=== PATIENT | female | born 1960 | race Caucasian/White ===

== ENCOUNTER 2022-05-08 09:05 | Outpatient (CLI) | payer OTHER, SELFPAY ==
--- NOTE | 2022-05-08 09:15 | CRLHL7_ITS ---
For Patients: As a result of the Century Cures Act, medical imaging exams and procedure reports are released immediately into your electronic medical record. You may view this report before your referring provider. If you have questions, please contact your health care provider. BILATERAL SCREENING MAMMOGRAM WITH COMPUTER-AIDED DETECTION AND TOMOSYNTHESIS TECHNIQUE: CC and MLO views were obtained. These mammographic images have been obtained using full-field digital technique. These mammographic images were interpreted with the benefit of computer-aided detection. Breast Tomosynthesis was used in this interpretation. COMPARISON FILM: 03/21/21, 03/01/20, 02/05/19. FINDINGS: The breasts are heterogeneously dense, which may obscure small masses. IMPRESSION: There is no radiographic evidence for malignancy. ASSESSMENT: BI-RADS Category 2: Benign RECOMMENDATION: Routine screening mammogram in 1 year. A lay language report of this examination will be provided to the patient. Meme Herrera M.D. Diagnostic/Breast Radiologist [email or web address] STEVEP/cosme PT/Dictated by: Meme Herrera MD @ 05/08/2022 10:37:00 AM (Electronically Signed)
== END 2022-05-08 09:06 | disposition home or self-care (01) ==
LOC: MAMMO 09:06
PROVIDERS: PCP Family Medicine; Visit Provider Family Medicine
DX: Z12.31 Encounter for screening mammogram for malignant neoplasm of breast (principal); R92.2 Inconclusive mammogram
CPT/HCPCS: 77063; 77067

== ENCOUNTER 2023-02-20 07:57 | Outpatient (CLI) | payer OTHER, SELFPAY | END 2023-02-20 07:58 | disposition home or self-care (01) | LOC: NFLDREF 14:29 | PROVIDERS: PCP Family Medicine; Referring Provider Family Medicine; Visit Provider Family Medicine | DX: E03.9 Hypothyroidism, unspecified (principal); E78.5 Hyperlipidemia, unspecified; R17 Unspecified jaundice; F41.9 Anxiety disorder, unspecified; F32.A Depression, unspecified | CPT/HCPCS: 80061; 80076; 84443 ==

== ENCOUNTER 2023-06-11 15:08 | Outpatient (CLI) | payer OTHER, SELFPAY ==
--- NOTE | 2023-06-11 15:20 | CRLHL7_ITS ---
For Patients: As a result of the Century Cures Act, medical imaging exams and procedure reports are released immediately into your electronic medical record. You may view this report before your referring provider. If you have questions, please contact your health care provider. BILATERAL SCREENING MAMMOGRAM WITH COMPUTER-AIDED DETECTION AND TOMOSYNTHESIS TECHNIQUE: CC and MLO views were obtained. These mammographic images have been obtained using full-field digital technique. These mammographic images were interpreted with the benefit of computer-aided detection. Breast Tomosynthesis was used in this interpretation. COMPARISON FILM: 05/08/22, 03/21/21, 03/01/20. FINDINGS: The breasts are heterogeneously dense, which may obscure small masses IMPRESSION: There is no radiographic evidence for malignancy. ASSESSMENT: BI-RADS Category 2: Benign RECOMMENDATION: Routine screening mammogram in 1 year. A lay language report of this examination will be provided to the patient. Gutsabo Jiménez M.D. Diagnostic Radiologist [email or web address] LYNNE/Dictated by: Gustabo Jiménez MD @ 06/12/2023 11:23:00 AM (Electronically Signed)
== END 2023-06-11 15:09 | disposition home or self-care (01) ==
LOC: MAMMO 15:09
PROVIDERS: PCP Family Medicine; Visit Provider Family Medicine
DX: Z12.31 Encounter for screening mammogram for malignant neoplasm of breast (principal); R92.2 Inconclusive mammogram
CPT/HCPCS: 77063; 77067

== ENCOUNTER 2023-09-14 12:45 | Outpatient (CLI) | payer OTHER, SELFPAY | END 2023-09-14 12:46 | disposition home or self-care (01) | LOC: NFLDREF 09-19 11:46 | PROVIDERS: PCP Family Medicine; Referring Provider Family Medicine; Visit Provider Registered Nurse | DX: N30.00 Acute cystitis without hematuria (principal); B96.20 Unspecified Escherichia coli [E. coli] as the cause of diseases classified elsewhere | CPT/HCPCS: 87086; 87186 ==

== ENCOUNTER 2023-11-28 07:34 | Outpatient (CLI) | payer OTHER, SELFPAY ==
--- OUTSIDE RECORDS SUMMARY | 2023-11-29 10:19 | XMS_ITS | Clinical Summary ---
[facility] Organization [facility] Address [address], [place] [address] Care Team Providers Care Bird Raiser Name Role Phone Cassie Steele MD Primary Care Provider + Source Comments You are receiving this document as you are listed as the primary care provider,follow-up provider, or the patient has been referred to you for consultation.This is in compliance with the Medicare and[facility] Hospital[facility] EHR Incentive Program,which states Providers who transition their patient to another setting of careor provider of care or refers their patient to another provider of care shouldprovide summary care record for each transition of care or referral. [facility] Allergies Active Allergy Reactions Criticality Noted Date Comments Penicillins 10/16/2003 PN: LW Reaction: rash Medications Medication Sig Dispensed Refills Start Date End Date Status Bimatoprost 0.03 % solutionIndications: Acquired hypothyroidism (HRC) Place into both eyes nightly. Place one drop on applicator and apply evenly along the upper eyelid at base of eyelashes 3 mL 11 12/13/2015 Active liothyronine (CYTOMEL) 5 MCG tablet Take 1 Tab by mouth two times a day. 180 Tab 1 10/17/2017 Active SYNTHROID 88 MCG tablet 1 tab 6 days per week and 1/2 tab 7th day 90 Tab 1 10/17/2017 Active gatifloxacin (AKA ZYMAXID) 0.5 % eye drop solution 1 drop. LW Comment:FOR OPERATIVE EYE LW Addl Instr:Use in operative eye as directed.Ocuflox may be substituted for insurance purposes.If purchased at a [facility] pharmacy please dispense post-op kit. 5 1 10/29/2005 6 Discontinue d(Therapy completed) prednisoLONE acetate (AKA PRED FORTE) 1 % eye drop suspension 1 drop. LW Addl Instr:Use in operative eye as directed. If purchased at a [facility] pharmacy please dispense post-op kit 10 1 11/01/2005 6 Discontinue d(Therapy completed) Active Problems Problem Noted Date Diagnosed Date H/O adenomatous polyp of colon 04/18/2013 Overview: saloni leyva'alicia 2016 Premenstrual tension syndrome 11/01/2009 Overview: Premenstrual Syndrome Other vitreous opacities, unspecified eye 2007 Overview: LW Modifier: s'p vitrectomy, detached retina ; Floaters Vitreous Diffuse cystic mastopathy 09/20/2007 Overview: Fibrocystic Breast Hypothyroidism 12/06/2002 Overview: Hypothyroidism Acquired Immunizations Name Administration Dates Next Due Flu Vac Preserv Free (3+yrs) 04/08/2012, 04/14/2011,04/13/2009,2007,04/19/2007,05/03/2006,05/08/2005 H1n1 Miv Sanofi 3+ Yr (Injected) 07/24/2009 HepA Adult (19+ yrs) 05/08/2008,09/20/2007 HepB Adult (Engerix-B, 20+ y rs, 3 dose series) 05/08/2008,11/01/2007,09/20/2007 Influenza IIV4 (Quadrivalent ) 0.5mL (06741) 04/04/2017,03/22/2016,05/19/2015,2012 Influenza, Unspecified Formulation 05/19,05/15/2002,04/09/2001,1998,04/19/1998,05/16/1997 Rabies 11/01/2007,10/18/2007,10/11/2007 Rho(D) - IG, IM 08/03/1994 TDAP (ADACEL) 11/09/2010 Td 05/15/2002 Family History Medical History Relation Name Comments Heart Disease Father High Blood Pressure Father Cataract Mother Macular Degeneration Mother Retinal Detachment Mother Cancer Negative Family History Cancer, Breast Negative Family History Cancer, Ovary Negative Family History Diabetes Negative Family History Stroke Negative Family History Relation Name Status Comments Father Mother Social History Tobacco Use Types Packs/Day Years Used Date Smoking Tobacco: Never Smokeless Tobacco: Never Alcohol Use Standard Drinks/Week Comments Yes 3 (1 standard drink = 0.6 oz pure alcohol) Alcoholic Drinks/day: Amount:1-2 drinks; 3-4 times per week Sex and Gender Information Value Date Recorded Sex Assigned at Not on file Gender Identity Not on file Sexual Orientation Not on file Last Filed Vital Signs Vital Sign Reading Time Taken Comments Blood Pressure 112/82 04/04/2017 11:47 AM CDT Pulse 64 04/04/2017 11:47 AM CDT Temperature 37.2 ??C (99 ??F) 05/19/2015 7:51 AM IN FLIGHT TECHNICIAN Respiratory Rate 16 07/22/2015 12:45 PM IN FLIGHT TECHNICIAN Oxygen Saturation 100% 07/22/2015 12:45 PM IN FLIGHT TECHNICIAN Inhaled Oxygen Concentration - - Weight 66.7 kg (147 lb) 04/04/2017 11:47 AM CDT Height 162.6 cm (5' 4) 04/04/2017 11:47 AM CDT Body Mass Index 25.23 04/04/2017 11:47 AM CDT Plan of Treatment Health Maintenance Due Date Last Done Comments HIV Screening (Preventive Services) 1975 Adult Preventive Visit 1977 Zoster/Shingles (1 of 2) 2009 Mammogram 12/25/2017 12/25/2016, 08/03, 08/24/2014, Additional history exists Cervical Cancer Screening 05/19/20182014, 11/09/2010, 11/01/2009, Additional history exists Colonoscopy 07/22/2020 07/22/2015, 01/30 (Completed), 12/02/2009 DTaP/Tdap/Td (2 - Tdap) 11/09/2020 11/09/2010, 05/15 Cholesterol 03/22/2021 03/22/2016, 01/2016, 05/19/2015, Additional history exists COVID-19 Vaccine ( season) 2023 Influenza (Season Ended) 2024 017, 03/22/2016, 05/19/2015, Additional history exists HepA Aged Out 05/08/2008, 09/20/2007 No lo nger eligible based on patient's age to complete this topic HepB Completed 05/08/2008, 08/2007, 09/20/2007 Hep C Screening (Preventive Services) Completed 03/22/2016 Hib Aged Out No longer eligi ble based on patient's age to complete this topic IPV (Polio) Aged Out No longer eligi ble based on patient's age to complete this topic MCV4 Aged Out No longer eligi ble based on patient's age to complete this topic Pneumococcal Aged Out No longer eligi ble based on patient's age to complete this topic Procedures Procedure Name Priority Date/Time Associated Diagnosis Comments MM MAMMOGRAM SCREENING BILAT W CAD Routine 12/25/2016 3:41 PM CDT Visit for screening HEPATITIS C ANTIBODY, WITH REFLEX Routine 03/22/2016 7:47 AM CDT Need for hepatitis C screening test LIPID PANEL & DIRECT LDL (IF NEEDED) Routine 03/22/2016 7:47 AM CDT Elevated cholesterol (HRC) ENDOSCOPY, COLON, SCREENING/DIAGNOSTI C Routine 07/22/2015 11:04 AM IN FLIGHT TECHNICIAN Anemia, unspecified anemia type ANATOMICAL PATH LIQUID BASED Routine 05/19/2015 8:38 AM IN FLIGHT TECHNICIAN from Last 3 Months or Most Recently Relevant to Health Maintenance Results * MM Mammogram Screening Bilat W CAD (12/25/2016 3:41 PM CDT) Anatomical Region Laterality Modality Breast Bilateral Mammography Impressions 12/25/2016 4:02 PM CDT : ACR BI-RADS Category 1: Negative RECOMMENDATION: Follow Up Imaging in 12 months - Bilateral The results and recommendations of this examination will be communicated to the patient. Narrative 12/25/2016 4:02 PM CDT MM MAMMOGRAM SCREENING BILAT W CAD performed on 12/25/16 Compared to: 08/26/2015 MM Mammogram Screening Bilat W CAD, 08/24/2014 MM Mammogram Screening Bilat W CAD, and 04/18/2013 MM Mammogram Screening Bilat W CAD FINDINGS: Bilateral screening mammogram was performed with the assistance of Computer-Aided Detection. The breasts are heterogeneously dense, which may obscure small masses. There is no radiographic evidence of malignancy. ?? Cassie Steele MD RAD CORNELIUS * (ABNORMAL) Lipid Panel and Direct LDL(If Needed) (03/22/2016 7:47 AM CDT) Cholesterol 235(H) 0 - 199 mg/dL PN SOFT Triglycerides 74 4 - 149 mg/dL PN SOFT HDL Cholesterol 79 >39 mg/dL PN SOFT Cholesterol/HDL Ratio Screen 3.0 PN SOFT LDL Calculated 141(H) 19 - 130 mg/dL PN SOFT Hours Fasting 12.0 PN SOFT 03/22/2016 7:47 AM CDT 03/22/2016 1:56 PM CDT Narrative PN SOFT - 03/22/2016 2:47 PM CDT Performed at [facility] [place], [address] [place] [id number] CLIA# [id number] Cassie Steele MD LAB_1 PN SOFT [address] [place] [address] * Hepatitis C Virus Gena with Reflex (03/22/2016 7:47 AM CDT) Hepatitis C Antibody Nonreactive Nonreactive PN SOFT 03/22/2016 7:47 AM CDT 03/22/2016 12:57 PM CDT Narrative PN SOFT - 03/22/2016 1:42 PM CDT Performed at [facility], [address] [place] [address] CLIA number [id number] Cassie Steele MD LAB_1 PN SOFT [address] [place] [address] * Endoscopy, colon, diagnostic (07/22/2015 11:04 AM IN FLIGHT TECHNICIAN) 07/22/2015 11:0 4 AM IN FLIGHT TECHNICIAN Narrative PN PROVATION - 07/22/2015 11:04 AM IN FLIGHT TECHNICIAN Patient Name: Cmailla Hendricks Procedure Date: 07/22/2015 11:04 AM Date of : 1960 Admit Type: Outpatient Age: 55 Gender: Female Note Status: Finalized Attending MD: Fan Robison MD Procedure: ? Colonoscopy Indications: ? Last colonoscopy: January 2011 Providers: ? Fan Robison MD, Bonita Ireland MD: ?Cassie Steele MD Medicines: ? Midazolam 2 mg IV, Fentanyl 100 ? micrograms IV Complications: ? No immediate complications. Procedure: ? After I obtained informed consent, ? the scope was passed under direct ? vision. Throughout the procedure, the ? patient's blood pressure, pulse, and ? oxygen saturations were monitored ? continuously. The [id number] was ? introduced through the anus and ? advanced to the terminal ileum, with ? identification of the appendiceal ? orifice and IC valve. The colonoscopy ? was performed without difficulty. The ? patient tolerated the procedure well. ? The quality of the bowel preparation ? was excellent. Findings: ? The digital rectal exam showed no masses. ? The terminal ileum appeared normal. ? A 3 mm polyp was found in the distal ascending colon. ? The polyp was sessile. The polyp was removed with a ? cold biopsy forceps. Resection and retrieval were ? complete. ? A 5 mm polyp was found in the rectum. The polyp was ? sessile. The polyp was removed with a cold biopsy ? forceps. Resection and retrieval were complete. Impression: ?- The examined portion of the ileum ? was normal. ? - One 3 mm polyp in the distal ? ascending colon. Resected and ? retrieved. ? - One 5 mm polyp in the rectum. ? Resected and retrieved. Recommendation: ?- Await pathology results. ? - Repeat colonoscopy in 5 years for ? surveillance. Procedure Code(s): ?? --- Professional --- ? 85067, Colonoscopy, flexible; with ? biopsy, single or multiple Diagnosis Code(s): ?? --- Professional --- ? D12.2, Benign neoplasm of ascending ? colon ? K62.1, Rectal polyp CPT copyright 2014 [employer]. All rights reserved. The codes documented in this report are preliminary and upon domestic technician review may be revised to meet current compliance requirements. Fan Robison MD 07/22/2015 12:17 PM This document has been electronically signed. Number of Addenda: 0 Note Initiated On: 07/22/2015 11:04 AM ? Endoscopy Report Cassie Steele MD PN GI PROCEDURE ORDERABLES PN PROVATION * Pap Smear (05/19/2015 8:38 AM IN FLIGHT TECHNICIAN) 05/19/2015 8:38 AM IN FLIGHT TECHNICIAN Narrative HP CONVERSION - 05/26/2015 1:23 PM IN FLIGHT TECHNICIAN FINAL GYNECOLOGICAL CYTOLOGY REPORT Pathology #: [id number] ?Date Obtained: 05/19/2015 ? Date Received: 05/20/2015 INTERPRETATION/RESULTS: Negative for Intraepithelial Lesion or Malignancy. SPECIMEN ADEQUACY: Satisfactory for Evaluation. ??No endocervical cells/transformation zone component present; patient is postmenopausal. Verified on 05/26/2015 ??by LUCIUS MACKEY MD (electronic signature) CLINICAL NOTES: ?Abnormal bleeding: No, LMP: 11/01/2013, Menstrual status: Post ?Menopausal, Current form of therapy: None apply LIQUID BASED PAP SMEAR SPECIMEN TYPE: ?ROUTINE CERVICAL PAP TEST PLEASE NOTE: The pap smear is a screening test designed to aid in the detection of cervical cancer and its precursor lesions. It is not a diagnostic procedure and should not be used as the sole means of detecting cervical cancer. Both false-positive and false-negative reports may occur. ? End of Report Performed at [facility], [facility] [place] [address] Transcriptions 08/10/2016 12:13 AM CSTNotes Recorded by Sharri Allen RN on 06/14/2015 at 9:46 Radha Sampson,I am writing to let you know that your PAP and HPV result is negative. This means that your test result was normal. No cancer or precancerous cells were seen.Based on current cervical cancer screening recommendations, your next PAP and HPV should be in 3 years. Continue to schedule your annual preventive exams for your overall health.If you have questions about cervical cancer screening or your test results, callCervical Cancer Screening and Management Team [phone] RN on behalf ofDr. Andreea Cantu, Medical DirectorPremier Health Upper Valley Medical Centerk [place] Cervical Cancer Screening and Management Cassie Steele MD LAB_1 HP CONVERSION from Last 3 Months or Most Recently Relevant to Health Maintenance Care Teams Bird Raiser Relationship Specialty Start Date End Date Cassie Steele MD [address] [place] [address] [address] [facility] [address] PCP - General 10/01/10
== END 2023-11-28 07:35 | disposition home or self-care (01) ==
LOC: NFLDREF 11-29 10:17
PROVIDERS: PCP Family Medicine; Referring Provider Family Medicine; Visit Provider Family Medicine
DX: M81.0 Age-related osteoporosis without current pathological fracture (principal); E03.9 Hypothyroidism, unspecified; E78.5 Hyperlipidemia, unspecified; R79.89 Other specified abnormal findings of blood chemistry; R53.83 Other fatigue; M85.80 Other specified disorders of bone density and structure, unspecified site
CPT/HCPCS: 80053; 80061; 82306; 82607; 84443

== ENCOUNTER 2024-01-07 09:58 | Outpatient (CLI) | payer OTHER, SELFPAY ==
--- OUTSIDE RECORDS SUMMARY | 2024-01-07 10:03 | XMS_ITS | Clinical Summary ---
Author Organization [facility] Address [address], [place] [address] Care Team Providers Care Food Chemist Name Role Phone Cassie Steele MD Primary Care Provider + Source Comments You are receiving this document as you are listed as the primary care provider,follow-up provider, or the patient has been referred to you for consultation.This is in compliance with the Medicare andWilson Memorial Hospitalcaid EHR Incentive Program,which states Providers who transition their patient to another setting of careor provider of care or refers their patient to another provider of care shouldprovide summary care record for each transition of care or referral. [employer] Allergies Active Allergy Reactions Criticality Noted Date [...] substituted for insurance purposes.If purchased at a [facility] pharmacy please dispense post-op kit. 5 1 10/29/2005 6 Discontinue d(Therapy completed) prednisoLONE acetate (AKA PRED FORTE) 1 % eye drop suspension 1 drop. LW Addl Instr:Use in operative eye as directed. If purchased at a [facility] pharmacy please dispense post-op kit 10 1 [...] series) 05/08/2008,11/01/2007,09/20/2007 Influenza IIV4 (Quadrivalent ) 0.5mL (54946) 04/04/2017,03/22/2016,05/19/2015,2012 Influenza, Unspecified Formulation 05/19,05/15/2002,04/09/2001,1998,04/19/1998,05/16/1997 Rabies 11/01/2007,10/18/2007,10/11/2007 [...] 37.2 ??C (99 ??F) 05/19/2015 7:51 AM ASSEMBLER GOLD FRAME Respiratory Rate 16 07/22/2015 12:45 PM ASSEMBLER GOLD FRAME Oxygen Saturation 100% 07/22/2015 12:45 PM ASSEMBLER GOLD FRAME Inhaled Oxygen Concentration - - Weight 66.7 [...] exists COVID-19 Vaccine ( season) 2023 Influenza (#1) 2024 04/04/2017, 03/03, 05/19/2015, Additional history exists HepA Aged Out [...] COLON, SCREENING/DIAGNOSTI C Routine 07/22/2015 11:04 AM ASSEMBLER GOLD FRAME Anemia, unspecified anemia type ANATOMICAL PATH LIQUID BASED Routine 05/19/2015 8:38 AM ASSEMBLER GOLD FRAME from Last 3 Months or Most Recently [...] - 03/22/2016 2:47 PM CDT Performed at [facility] [place], [address] [place] [address] ??[id number] CLIA# [id number] Cassie Steele MD LAB_1 PN SOFT [address] [place] [address] * Hepatitis C Virus Gena with Reflex (03/22/2016 7:47 AM CDT) Hepatitis C Antibody Nonreactive Nonreactive PN SOFT 03/22/2016 7:47 AM CDT 03/22/2016 12:57 PM CDT Narrative PN SOFT - 03/22/2016 1:42 PM CDT Performed at [facility], [address] [place] [address] CLIA number [id number] Cassie Steele MD LAB_1 PN SOFT [address] [place] [address] * Endoscopy, colon, diagnostic (07/22/2015 11:04 AM ASSEMBLER GOLD FRAME) 07/22/2015 11:0 4 AM ASSEMBLER GOLD FRAME Narrative PN PROVATION - 07/22/2015 11:04 AM ASSEMBLER GOLD FRAME Patient Name: Camilla Hendricks Procedure Date: 07/22/2015 11:04 AM Date [...] oxygen saturations were monitored ? continuously. The [id number] was ? introduced through the anus and [...] Procedure Code(s): ?? --- Professional --- ? 87179, Colonoscopy, flexible; with ? biopsy, single or multiple Diagnosis Code(s): ?? --- Professional --- ? D12.2, Benign neoplasm of ascending ? colon ? K62.1, Rectal polyp CPT copyright 2014 [employer]. All rights reserved. The codes documented in this report are preliminary and upon multimedia project manager review may be revised to meet current compliance requirements. Fan Robison MD 07/22/2015 12:17 PM This document has been electronically signed. Number of Addenda: 0 Note Initiated On: 07/22/2015 11:04 AM ? Endoscopy Report Cassie Steele MD PN GI PROCEDURE ORDERABLES PN PROVATION * Pap Smear (05/19/2015 8:38 AM ASSEMBLER GOLD FRAME) 05/19/2015 8:38 AM ASSEMBLER GOLD FRAME Narrative HP CONVERSION - 05/26/2015 1:23 PM ASSEMBLER GOLD FRAME FINAL GYNECOLOGICAL CYTOLOGY REPORT Pathology #: [id number] ?Date Obtained: 05/19/2015 ? Date Received: 05/20/2015 [...] occur. ? End of Report Performed at [facility], [facility] [place] [address] Transcriptions 08/10/2016 12:13 AM CSTNotes Recorded by [...] results, callCervical Cancer Screening and Management Team [phone] RN on behalf ofDr. Andreea Cantu, Medical DirectorSelect Medical Specialty Hospital - [facility]ullk [place] Cervical Cancer Screening and Management Cassie Steele MD LAB_1 HP CONVERSION from Last 3 Months or Most Recently Relevant to Health Maintenance Care Teams Food Chemist Relationship Specialty Start Date End Date Cassie Steele MD [address] [place] [address] [address] [facility] [address] PCP - General 10/01/10
--- NOTE | 2024-01-07 12:25 | W.ANESCHARGE ---
Anesthesia Charges Start Date/Time Anesthesia Start Date: 01/07/24 Anesthesia Start Time: 12:23 Stop Date/Time Anesthesia Stop Date: 01/07/24 Anesthesia Stop Time: 12:55
--- NOTE | 2024-01-07 12:56 | W.ANESCHARGE ---
Anesthesia Charges Start Date/Time Anesthesia Start Date: 01/07/24 Anesthesia Start Time: 12:23 Stop Date/Time Anesthesia Stop Date: 01/07/24 Anesthesia Stop Time: 12:55
== END 2024-01-07 09:59 | disposition home or self-care (01) ==
LOC: OP CLINIC 09:58
PROVIDERS: PCP Family Medicine; Visit Provider Surgery
DX: Z86.010 Personal history of colon polyps (principal)
CPT/HCPCS: 00812; 45378; J2704

== ENCOUNTER 2024-05-21 13:49 | Outpatient (CLI) | payer OTHER, SELFPAY ==
--- OUTSIDE RECORDS SUMMARY | 2024-05-21 13:52 | XMS_ITS | Clinical Summary ---
Author Organization [facility] Address [address], [place] [address] Care Team Providers Care Conveyor Console Operator Name Role Phone Cassie Steele MD Primary Care Provider + Source Comments You are receiving this document as you are listed as the primary care provider,follow-up provider, or the patient has been referred to you for consultation.This is in compliance with the Medicare and[facility] Hospitalca[facility] EHR Incentive Program,which states Providers who transition their patient to another setting of careor provider of care or refers their patient to another provider of care shouldprovide summary care record for each transition of care or referral. [facility] Allergies Active Allergy Reactions Criticality Noted Date [...] substituted for insurance purposes.If purchased at a [facility] pharmacy please dispense post-op kit. 5 1 10/29/2005 6 Discontinue d(Therapy completed) prednisoLONE acetate (AKA PRED FORTE) 1 % eye drop suspension 1 drop. LW Addl Instr:Use in operative eye as directed. If purchased at a [facility] pharmacy please dispense post-op kit 10 1 11/01/2005 6 Discontinue d(Therapy completed) Active Problems Problem Noted Date Diagnosed Date H/O adenomatous polyp of colon 04/18/2013 Overview (02/02/2016): saloni finch 2016 Premenstrual tension syndrome 11/01/2009 Overview (02/21/2017): Premenstrual Syndrome Other vitreous opacities, unspecified eye 2007 Overview (02/21/2017): LW Modifier: s'p vitrectomy, detached retina ; Floaters Vitreous Diffuse cystic mastopathy 09/20/2007 Overview (02/21/2017): Fibrocystic Breast Hypothyroidism 12/06/2002 Overview (02/21/2017): Hypothyroidism Acquired Immunizations Name Administration Dates Next Due Flu Vac Preserv Free (3+yrs) 04/08/2012, 04/14/2011,04/13/2009,2007,04/19/2007,05/03/2006,05/08/2005 H1n1 Miv Sanofi 3+ Yr (Injected) 07/24/2009 HepA Adult (19+ yrs) 05/08/2008,09/20/2007 HepB Adult (Engerix-B, 20+ y rs, 3 dose series) 05/08/2008,11/01/2007,09/20/2007 Influenza IIV4 (Quadrivalent ) 0.5mL (87208) 04/04/2017,03/22/2016,05/19/2015,2012 Influenza, Unspecified Formulation 05/19,05/15/2002,04/09/2001,1998,04/19/1998,05/16/1997 Rabies 11/01/2007,10/18/2007,10/11/2007 [...] 64 04/04/2017 11:47 AM CDT Temperature 37.2 C (99 F) 05/19/2015 7:51 AM PHARMACISTS Respiratory Rate 16 07/22/2015 12:45 PM [facility]ACISTS Oxygen Saturation 100% 07/22/2015 12:45 PM [facility] Inhaled Oxygen Concentration - - Weight 66.7 kg (147 lb) 04/04/2017 11:47 AM CDT Height 162.6 cm (5' 4) 04/04/2017 11:47 AM CDT Body Mass Index 25.23 04/04/2017 11:47 AM CDT Plan of Treatment Health Maintenance Due Date Last Done Comments Adult Preventive Visit 1977 Zoster/Shingles (1 of 2) 2009 Mammogram 12/25/2017 12/25/2016, 08/03, 08/24/2014, Additional history exists Cervical Cancer Screening 05/19/20182014, 11/09/2010, 11/01/2009, Additional history exists Colonoscopy 07/22/2020 07/22/2015, 0807/2010 (Completed), 12/02/2009 DTaP/Tdap/Td (2 - Tdap) 11/09/2020 11/09/2010, 05/15 Cholesterol 03/22/2021 03/22/2016, 01/2016, 05/19/2015, Additional history exists COVID-19 Vaccine ( - 2023- season) 2024 Influenza (#1) 2024 04/04/2017, 03/03, 05/19/2015, Additional history exists Pneumococcal 65+ Yrs (1 - PCV) 2024 RSV (1 - 1-dose 75+ series) 2034 HepA Aged Out 05/08/2008, 09/20/2007 No lo nger eligible based on patient's age to complete this topic HepB Completed 05/08/2008, 08/2007, 09/20/2007 Hep C Screening (Preventive Services) Completed 03/22/2016 Hib Aged Out No longer eligi ble based on patient's age to complete this topic IPV (Polio) Aged Out No longer eligi ble based on patient's age to complete this topic Infant RSV Aged Out No longer eligi ble based [...] COLON, SCREENING/DIAGNOSTI C Routine 07/22/2015 11:04 AM PHARMACISTS Anemia, unspecified anemia type ANATOMICAL PATH LIQUID BASED Routine 05/19/2015 8:38 AM PHARMACISTS from Last 3 Months or Most Recently [...] There is no radiographic evidence of malignancy. Cassie Steele MD RAD CORNELIUS * (ABNORMAL) [...] - 03/22/2016 2:47 PM CDT Performed at [facility], [address] [place] [address] [place]# [id number] Cassie Steele MD LAB_1 PN SOFT [address] [place] [address] * Hepatitis C Virus Gena with Reflex (03/22/2016 7:47 AM CDT) Hepatitis C Antibody Nonreactive Nonreactive PN SOFT 03/22/2016 7:47 AM CDT 03/22/2016 12:57 PM CDT Narrative [facility] - 03/22/2016 1:42 PM CDT Performed at [facility], [address] [place] [address] CLIA number [id number] Cassie Steele MD LAB_1 [place] [address] [place] [address] * Endoscopy, colon, diagnostic (07/22/2015 11:04 AM PHARMACISTS) Anatomical Region Laterality Modality Other 07/22/2015 11:0 4 AM [facility] Narrative 07/22/2015 11:04 AM [facility]ACISTS Patient Name: Camilla Hendricks Procedure Date: 07/22/2015 11:04 AM Date of : 1960 Admit Type: Outpatient Age: 55 Gender: Female Note Status: Finalized Attending MD: Fan Robison MD Procedure: Colonoscopy Indications: Last colonoscopy: January 2011 Providers: Fan Robison MD, Bonita Ireland MD: Cassie Steele MD Medicines: Midazolam 2 mg IV, Fentanyl 100 micrograms IV Complications: No immediate complications. Procedure: After I obtained informed consent, the scope was passed under direct vision. Throughout the procedure, the patient's blood pressure, pulse, and oxygen saturations were monitored continuously. The [id number] was introduced through the anus and advanced to the terminal ileum, with identification of the appendiceal orifice and IC valve. The colonoscopy was performed without difficulty. The patient tolerated the procedure well. The quality of the bowel preparation was excellent. Findings: The digital rectal exam showed no masses. The terminal ileum appeared normal. A 3 mm polyp was found in the distal ascending colon. The polyp was sessile. The polyp was removed with a cold biopsy forceps. Resection and retrieval were complete. A 5 mm polyp was found in the rectum. The polyp was sessile. The polyp was removed with a cold biopsy forceps. Resection and retrieval were complete. Impression: - The examined portion of the ileum was normal. - One 3 mm polyp in the distal ascending colon. Resected and retrieved. - One 5 mm polyp in the rectum. Resected and retrieved. Recommendation: - Await pathology results. - Repeat colonoscopy in 5 years for surveillance. Procedure Code(s): --- Professional --- 59562, Colonoscopy, flexible; with biopsy, single or multiple Diagnosis Code(s): --- Professional --- D12.2, Benign neoplasm of ascending colon K62.1, Rectal polyp CPT copyright 2014 [employer]. All rights reserved. The codes documented in this report are preliminary and upon order packer or packager review may be revised to meet current compliance requirements. Fan Robison MD 07/22/2015 12:17 PM This document has been electronically signed. Number of Addenda: 0 Note Initiated On: 07/22/2015 11:04 AM Endoscopy Report Cassie Steele MD ET GI PROCEDURE ORDERABLES * Pap Smear (05/19/2015 8:38 AM PHARMACISTS) 05/19/2015 8:38 AM PHARMACISTS Narrative HP CONVERSION - 05/26/2015 1:23 PM PHARMACISTS FINAL GYNECOLOGICAL CYTOLOGY REPORT Pathology #: [id number] Date Obtained: 05/19/2015 Date Received: 05/20/2015 INTERPRETATION/RESULTS: Negative for Intraepithelial Lesion or Malignancy. SPECIMEN ADEQUACY: Satisfactory for Evaluation. No endocervical cells/transformation zone component present; patient is postmenopausal. Verified on 05/26/2015 by LUCIUS MACKEY MD (electronic signature) CLINICAL NOTES: Abnormal bleeding: No, LMP: 11/01/2013, Menstrual status: Post Menopausal, Current form of therapy: None apply LIQUID BASED PAP SMEAR SPECIMEN TYPE: ROUTINE CERVICAL PAP TEST PLEASE NOTE: The pap smear is a screening test designed to aid in the detection of cervical cancer and its precursor lesions. It is not a diagnostic procedure and should not be used as the sole means of detecting cervical cancer. Both false-positive and false-negative reports may occur. End of Report Performed at [facility], [address] [place] [address] Transcriptions 08/10/2016 12:13 AM CSTNotes Recorded by Sharri Allen RN on 06/14/2015 at 9:46 AMDear Camilla,I am writing to let you know that [...] results, callCervical Cancer Screening and Management Team [phone] Conner RN on behalf ofDr. Andreea Cantu, Medical DirectorZanesville City Hospitalk [place] Cervical Cancer Screening and Management Cassie Steele MD LAB_1 HP CONVERSION from Last 3 Months or Most Recently Relevant to Health Maintenance Care Teams Conveyor Console Operator Relationship Specialty Start Date End Date Cassie Steele MD [address] [facility] [address] [place], [place] [id number] PCP - General 10/01/10
--- NOTE | 2024-05-21 14:00 | CRLHL7_ITS ---
For Patients: As a result of the Century Cures Act, medical imaging exams and procedure reports are released immediately into your electronic medical record. You may view this report before your referring provider. If you have questions, please contact your health care provider. BILATERAL SCREENING MAMMOGRAM WITH COMPUTER-AIDED DETECTION AND TOMOSYNTHESIS TECHNIQUE: CC and MLO views were obtained. These mammographic images have been obtained using full-field digital technique. These mammographic images were interpreted with the benefit of computer-aided detection. Breast Tomosynthesis was used in this interpretation. COMPARISON FILM: 06/11/23, 05/08/22, 03/21/21. FINDINGS: The breasts are heterogeneously dense, which may obscure small masses IMPRESSION: There is no radiographic evidence for malignancy. ASSESSMENT: BI-RADS Category 2: Benign RECOMMENDATION: Routine screening mammogram in 1 year. A lay language report of this examination will be provided to the patient. Gustabo Jiménez M.D. Diagnostic Radiologist [email or web address] LV/maciej Transcribed: 2:40 p.anup wing/Dictated by: Gustabo Jiménez MD @ 05/22/2024 10:01:00 AM (Electronically Signed)
== END 2024-05-21 13:50 | disposition home or self-care (01) ==
LOC: MAMMO 13:50
PROVIDERS: PCP Family Medicine; Visit Provider Family Medicine
DX: Z12.31 Encounter for screening mammogram for malignant neoplasm of breast (principal); R92.333 Mammographic heterogeneous density, bilateral breasts
CPT/HCPCS: 77063; 77067

== ENCOUNTER 2024-08-12 08:51 | Outpatient (CLI) | payer MEDICARE, BC, SELFPAY | END 2024-08-12 08:52 | disposition home or self-care (01) | LOC: NFLDREF 08-15 03:47 | PROVIDERS: PCP Family Medicine; Referring Provider Family Medicine; Visit Provider Physician Assistant | DX: R35.0 Frequency of micturition (principal); N39.0 Urinary tract infection, site not specified; R30.0 Dysuria | CPT/HCPCS: 87086 ==

== ENCOUNTER 2024-12-08 07:50 | Outpatient (CLI) | payer MEDICARE, BC, SELFPAY | END 2024-12-08 07:51 | disposition home or self-care (01) | LOC: NFLDREF 14:19 | PROVIDERS: PCP Family Medicine; Referring Provider Family Medicine; Visit Provider Family Medicine | DX: E03.8 Other specified hypothyroidism (principal); E06.3 Autoimmune thyroiditis; E78.5 Hyperlipidemia, unspecified; M85.851 Other specified disorders of bone density and structure, right thigh; M85.852 Other specified disorders of bone density and structure, left thigh; R53.83 Other fatigue; E03.9 Hypothyroidism, unspecified; M81.0 Age-related osteoporosis without current pathological fracture; Z86.2 Personal history of diseases of the blood and blood-forming organs and certain disorders involving the immune mechanism | CPT/HCPCS: 80053; 80061; 82306; 82728; 84439; 84443; 84480 ==

== ENCOUNTER 2024-12-25 14:56 | Outpatient (CLI) | payer MEDICARE, BC, SELFPAY ==
--- NOTE | 2024-12-25 15:00 | CRLHL7_ITS ---
For Patients: As a result of the Century Cures Act, medical imaging exams and procedure reports are released immediately into your electronic medical record. You may view this report before your referring provider. If you have questions, please contact your health care provider. XR DXA Bone Mineral Density (BMD) Reason for exam: Osteopenia. Current height (in): 64. Weight (lb): 145. Menopause age: 54. Ethnicity: White. 1. Have you had a previous hip or vertebral fracture? No. 2. Have you had any fractures during your adult life which did not result from significant trauma (e.g., auto accident)? No. 3. Did either of your parents have a hip fracture? No. 4. Do you smoke? No. 5. Have you ever taken Glucocorticoids? No. 6. Do you have rheumatoid arthritis? No. 7. Do you have secondary osteoporosis? No. 8. Do you drink 3 or more alcoholic drinks per day? No. 9. Are you being treated for osteoporosis? No. 10. Have you ever taken any of the following medications: Actonel, Evista, Fosamax, Miacalcin, Reclast, Boniva, Forteo, HRT (i.e. estrogen/hormone therapy), Protelos, Prolia, Vitamin D, Calcium, other ??? please specify. ANSWER: Yes, vitamin D, calcium. 11. Do you have any of the following medical conditions: Anorexia or bulimia, asthma or emphysema, end stage renal disease, hyperparathyroidism, any seizure disorders, cancer, inflammatory bowel diseases, hysterectomy, other ??? please specify. ANSWER: No. 12. What was your maximum height (inches)? 64.5. 13. Do you perform weight bearing exercise regularly? Yes. 14. Do you regularly consume dairy products? Yes. 15. Do you drink caffeinated beverages? Yes. 16. At what age did your period start? 13. 17. Are you premenopausal? No. 18. How many full term pregnancies have you had? 2. 19. Have you ever missed your period for more than 6 months in a row (not including or menopause)? No. TECHNIQUE: Bone mineral density study was performed using the [employer] FINDINGS: The results of the study expressed as bone mineral density (BMD) are as follows: Lumbar spine L1 to L4: BMD: 0.812 g/cm2. T-score: -2.1. Z-score: -0.3. Neck Left: BMD: 0.635 g/cm2. T-score: -1.9. Z-score: -0.4. Right: BMD: 0.595 g/cm2. T-score: -2.3. Z-score: -0.8. Total Left: BMD: 0.794 g/cm2. T-score: -1.2. Z-score: 0.0. Right: BMD: 0.771 g/cm2. T-score: -1.4. Z-score: -0.1. IMPRESSION: Osteopenia. *Comparison exams done prior to 12/2019 were performed on different unit, [email or web address]. COMPARISON: Compared with scan of 12/14/2021, the bone mineral density has decreased by 4.1 percent at the spine and decreased by 3.6 percent at the hip. Compared with scan of 01/21/2018, the bone mineral density has decreased by 3.5 percent at the spine and increased by 1.8 percent at the hip. FRAX 10-year Fracture Risk Major Osteoporotic Fracture: 12 percent Hip Fracture: 2.1 percent Reported Risk Factors: [place] () Neck BMD=0.595, BMI=24.9 Gustabo Jiménez M.D. Diagnostic Radiologist [email or web address] bM/Dictated by: Gustabo Jiménez MD @ 12/25/2024 3:53:00 PM (Electronically Signed)
--- OUTSIDE RECORDS SUMMARY | 2024-12-26 00:55 | XMS_ITS | Clinical Summary ---
Author Organization [facility] Address [address] [address] Care Team Providers Care Home Restoration Service Cleaner Name Role Phone Cassie Steele MD Primary Care Provider + Source Comments You are receiving this document as you are listed as the primary care provider,follow-up provider, or the patient has been referred to you for consultation.This is in compliance with the Medicare andBar[facility] Hospitalcaid EHR Incentive Program,which states Providers who transition their patient to another setting of careor provider of care or refers their patient to another provider of care shouldprovide summary care record for each transition of care or referral. [facility] Allergies Active Allergy Reactions Criticality Noted Date Comments Penicillins 10/16/2003 PN: LW Reaction: rash Medications Bimatoprost 0.03 % solutionIndication s:Acquired hypothyroidism (HRC) Place into both eyes nightly. Place one drop on applicator and apply evenly along the upper eyelid at base of eyelashes 3 mL 11 12/13/19 16 Active liothyronine (CYTOMEL) 5 MCG tablet Take 1 Tab by mouth two times a day. 180 Tab 1 10/18/19 18 Active SYNTHROID 88 MCG tablet 1 tab 6 days per week and 1/2 tab 7th day 90 Tab 1 10/18/19 18 Active gatifloxacin (AKA ZYMAXID) 0.5 % eye drop solution 1 drop. LW Comment:FOR OPERATIVE EYE LW Addl Instr:Use in operative eye as directed.Ocuflo x may be substituted for insurance purposes.If purchased at a [facility] pharmacy please dispense post-op kit. 5 1 10/30/19 06 006 Discontin ued(Thera py completed ) prednisoLONE acetate (AKA PRED FORTE) 1 % eye drop suspension 1 drop. LW Addl Instr:Use in operative eye as directed. If purchased at a [facility] pharmacy please dispense post-op kit 10 1 11/02/19 06 006 Discontin ued(Thera py completed ) Active Problems Problem Noted Date Diagnosed Date H/O adenomatous polyp of colon 04/18/2013 Overview (02/02/2016): saloni finch 2016 Premenstrual tension syndrome 11/01/2009 Overview (02/21/2017): Premenstrual Syndrome Other vitreous opacities, unspecified eye 2007 Overview (02/21/2017): LW Modifier: s'p vitrectomy, detached retina ; Floaters Vitreous Diffuse cystic mastopathy 09/20/2007 Overview (02/21/2017): Fibrocystic Breast Hypothyroidism 12/06/2002 Overview (02/21/2017): Hypothyroidism Acquired Immunizations Immunization Administration Dates Next Due Flu Vac Preserv Free (3+yrs) 04/08/2012, 04/14/2011,04/13/2009,2007,04/19/2007,05/03/2006,05/08/2005 H1n1 Miv Sanofi 3+ Yr (Injected) 07/24/2009 HepA Adult (19+ yrs) 05/08/2008,09/20/2007 HepB Adult (Engerix-B, 20+ y rs, 3 dose series) 05/08/2008,11/01/2007,09/20/2007 Influenza IIV4 (Quadrivalent ) 0.5mL (43861) 04/04/2017,03/22/2016,05/19/2015,2012 Influenza, Unspecified Formulation 05/19,05/15/2002,04/09/2001,1998,04/19/1998,05/16/1997 Rabies 11/01/2007,10/18/2007,10/11/2007 [...] Drinks/day: Amount:1-2 drinks; 3-4 times per week Comments No Sex and Gender Information Value Date Recorded Sex Assigned at Not on file Legal Sex Female 4:38 AM CDT Gender Identity Not on file Sexual Orientation Not on file Occupation Industry Job Start Date Job End Date Not on file Not on file Not on file Not on file Last Filed Vital Signs Vital Sign Reading Time Taken Comments Blood Pressure 112/82 04/04/2017 11:47 AM CDT Pulse 64 04/04/2017 11:47 AM CDT Temperature 37.2 C (99 F) 05/19/2015 7:51 AM [employer] Respiratory Rate 16 07/22/2015 12:45 PM [employer] Oxygen Saturation 100% 07/22/2015 12:45 PM [employer] Inhaled Oxygen Concentration - - Weight 66.7 kg (147 lb) 04/04/2017 11:47 AM CDT Height 162.6 cm (5' 4) 04/04/2017 11:47 AM CDT Body Mass Index 25.23 04/04/2017 11:47 AM CDT Plan of Treatment Health Maintenance Due Date Last Done Comments Adult Preventive Visit 1977 Pneumococcal Vaccine 50+ Yrs (1 of 1 - PCV) 2009 Zoster/Shingles Vaccine (1 of 2) 2009 Mammogram 12/25/2017 12/25/2016, 08/03, 08/24/2014, Additional history exists Cervical Cancer Screening 05/19/20182014, 05/19/2015, 11/09/2010, Additional history exists Colonoscopy 07/22/2020 07/22/2015, 01/30 (Completed), 12/02/2009 DTaP/Tdap/Td Vaccine (2 - Tdap) 11/09/2020 11/09/2010, 05/15/2002 Cholesterol 03/22/2021 03/22/2016, 01/2016, 05/19/2015, Additional history exists COVID-19 Vaccine ( - 2023- season) 2024 Influenza Vaccine (Season Ended) 2025 04/04/2017, 03/22/2016, 05/19/2015, Additional history exists RSV Vaccine (1 - 1-dose 75+ series) 2034 HepA Vaccine Aged Out 05/08/2008, 09/20/2007 No lo nger eligible based on patient's age to complete this topic HepB Vaccine Completed 05/08/2008, 08/2007, 09/20/2007 Hep C Screening (Preventive Services) Completed 03/22/2016 Hib Vaccine Aged Out No longer eligi ble based on patient's age to complete this topic IPV (Polio) Vaccine Aged Out No longe r eligible based on patient's age to complete this topic MCV4 Vaccine Aged Out No longer eligi ble based on patient's age to complete this topic Meningococcal B Vaccine Aged Out No l onger eligible based on patient's age to complete this topic Procedures Procedure Name Priority Date/Time Associated Diagnosis Comments MM MAMMOGRAM SCREENING BILAT W CAD Routine 12/25/2016 3:41 PM CDT Visit for screening HEPATITIS C ANTIBODY, WITH REFLEX (ANTI-HCV) Routine 03/22/2016 7:47 AM CDT Need for hepatitis C screening test LIPID PANEL & DIRECT LDL (IF NEEDED) Routine 03/22/2016 7:47 AM CDT Elevated cholesterol (HRC) ENDOSCOPY, COLON, SCREENING/DIAGNOSTI C Routine 07/22/2015 11:04 AM [employer] Anemia, unspecified anemia type ANATOMICAL PATH LIQUID BASED Routine 05/19/2015 8:38 AM [employer] from Last 3 Months or Most Recently [...] There is no radiographic evidence of malignancy. us Cassie Steele MD RAD CORNELIUS Final Re sult * (ABNORMAL) Lipid Panel and Direct LDL(If [...] - 03/22/2016 2:47 PM CDT Performed at [facility], [address] [place] [address] CLIA# [id number] us Cassie Steele MD LAB_1 Final Re sult PN SOFT [address] [place] [address] * Hepatitis C Virus Gena with Reflex (03/22/2016 7:47 AM CDT) Hepatitis C Antibody Nonreactive Nonreactive [facility] 03/22/2016 7:47 AM CDT 03/22/2016 12:57 PM CDT Narrative [facility] - 03/22/2016 1:42 PM CDT Performed at [address] [address] CLIA number [id number] us Cassie Steele MD LAB_1 Final Re sult [place] [address] [place] [address] * Endoscopy, colon, diagnostic (07/22/2015 11:04 AM [employer]) Anatomical Region Laterality Modality Other 07/22/2015 11:0 4 AM [employer] Narrative 07/22/2015 11:04 AM [employer] Patient Name: Camilla Hendricks Procedure Date: 07/22/2015 11:04 AM Date of : 1960 Admit Type: Outpatient Age: 55 Gender: Female Note Status: Finalized Attending MD: Fan Robison MD Procedure: Colonoscopy Indications: Last colonoscopy: January 2011 Providers: Fan Robison MD, Bonita Manzo Referring MD: Cassie Steele MD Medicines: Midazolam 2 mg IV, Fentanyl 100 micrograms IV Complications: No immediate complications. Procedure: After I obtained informed consent, the scope was passed under direct vision. Throughout the procedure, the patient's blood pressure, pulse, and oxygen saturations were monitored continuously. The [id number] was introduced through the anus and advanced [...] for surveillance. Procedure Code(s): --- Professional --- 68113, Colonoscopy, flexible; with biopsy, single or multiple Diagnosis Code(s): --- Professional --- D12.2, Benign neoplasm of ascending colon K62.1, Rectal polyp CPT copyright 2014 [employer]. All rights reserved. The codes documented in this report are preliminary and upon direct mail manager review may be revised to meet current compliance requirements. Fan Robison MD 07/22/2015 12:17 PM This document has been electronically signed. Number of Addenda: 0 Note Initiated On: 07/22/2015 11:04 AM Endoscopy Report us Cassie Steele MD ET GI PROCEDURE ORDERABL ES Final Result * Pap Smear (05/19/2015 8:38 AM [employer]) 05/19/2015 8:38 AM [employer] Narrative HP CONVERSION - 05/26/2015 1:23 PM [employer] FINAL GYNECOLOGICAL CYTOLOGY REPORT Pathology #: [id number] Date Obtained: 05/19/2015 Date Received: 05/20/2015 INTERPRETATION/RESULTS: [...] may occur. End of Report Performed at [facility], [address] [place] [address] Transcriptions 08/10/2016 12:13 AM CSTNotes Recorded by [...] results, callCervical Cancer Screening and Management Team [phone] moser RN on behalf ofDr. Andreea Cantu, Medical DirectorPark [place] Cervical Cancer Screening and Management us Cassie Steele MD LAB_1 Final Re sult HP CONVERSION from Last 3 Months or Most Recently Relevant to Health Maintenance Insurance MEDICA CHOICE Care Teams Home Restoration Service Cleaner Relationship Specialty Start Date End Date Cassie Steele MD [address] [facility] [address] [place] [address] PCP - General 10/01/10
== END 2024-12-25 14:57 | disposition home or self-care (01) ==
LOC: RAD 14:57
PROVIDERS: PCP Family Medicine; Visit Provider Family Medicine
DX: M85.851 Other specified disorders of bone density and structure, right thigh (principal); M85.852 Other specified disorders of bone density and structure, left thigh
CPT/HCPCS: 77080

== ENCOUNTER 2025-06-17 10:45 | Outpatient (CLI) | payer MEDICARE, BC, SELFPAY ==
--- NOTE | 2025-06-17 11:00 | CRLHL7_ITS ---
For Patients: As a result of the Cures Act, medical imaging exams and procedure reports are released immediately into your electronic medical record. You may view this report before your referring provider. If you have questions, please contact your health care provider. Indication: CHRONIC SINUSITIS Technique: Performed without IV contrast Comparison: None available Findings: Frontal sinuses: Clear. Ethmoid sinuses: Mild mucosal thickening within 1 of the posterior left ethmoid air cells. Clear right ethmoid sinus. Maxillary sinuses: Small mucous retention cyst within the right maxillary sinus measures 8 millimeters. Moderately severe opacification of the left maxillary sinus due to mucosal thickening, fluid and mucus. Left sinus drainage pathway is occluded. Right sinus drainage pathway is clear. Sphenoid sinuses: Minimal mucosal thickening on the left. Patent sphenoethmoidal recesses. Nasal Cavity: S shaped curvature of the nasal septum with a left-sided nasal septal spur. Paradoxical turn of the middle turbinates. Small kamlesh bullosa on the left. No nasal polyp. Middle ear cavities and mastoid air cells are clear. Normal temporomandibular joints. Right scleral banding. Impression: 1. Moderately severe left maxillary sinus disease with occlusion of the left maxillary sinus drainage pathway. 2. S shaped curvature of the nasal septum with left-sided nasal septal spur. Please note that all CT scans at this facility use dose modulation, iterative reconstruction, and/or weight-based dosing when appropriate to reduce radiation dose to as low as reasonably achievable. Dictated by Gustabo Jiménez MD @ 06/17/2025 11:28:37 AM (Electronically Signed)
== END 2025-06-17 10:46 | disposition home or self-care (01) ==
LOC: CT 10:46
PROVIDERS: PCP Family Medicine; Visit Provider Otolaryngology
DX: J32.0 Chronic maxillary sinusitis (principal); J34.2 Deviated nasal septum
CPT/HCPCS: 70486